=== PATIENT | male | born 1985 | race Caucasian/White ===

== ENCOUNTER 2024-03-26 12:36 | Emergency (ER) | payer MEDICAID ==
[~2024-03-26] VITALS: Ht 172.7 cm; Wt 68.0 kg
[2024-03-26 15:35] VITALS: BP 132/87; TEMP 98.3; O2SAT 98
== END 2024-03-26 15:37 | disposition home or self-care (01) ==
LOC: ER 12:36
DX: N50.89 Other specified disorders of the male genital organs (principal); J45.909 Unspecified asthma, uncomplicated
CPT/HCPCS: 76870; A4606; A4663